=== PATIENT | female | born 1955 | race Caucasian/White ===

== ENCOUNTER 2017-04-10 16:52 | Inpatient (IN) | payer OTHER ==
[2017-04-10 16:59] VITALS: BMI 52.2
[2017-04-10] MEDS ORDERED: SODIUM CHLORIDE 1,000 ML IV STA (17:48)
[2017-04-10] MEDS ORDERED: dilTIAZem HCL 50 MG/10 ML - 10 ML VIAL IVPUSH ONE (17:48)
[2017-04-10] MEDS ORDERED: dilTIAZem HCL 125 MG/25 ML - 25 ML VIAL ONE (18:04)
--- NOTE | 2017-04-10 18:09 | PDOC ---
Attending Attestation - Resident Resident Name: CristisusannaOrbel - ED Attending Attestation I have performed the following: I have examined & evaluated the patient, The case was reviewed & discussed with the resident, I agree w/resident's findings & plan, Exceptions are as noted - HPI HPI: 04/10/17 19:12 61-year-old female with past medical history obesity presents from Dr. Ledbetter's office for atrial fibrillation and rapid ventricular response. The patient reports 3 days of dysuria and blood-tinged urine. Went to her primary care physician's office and noted that she was tachycardic and irregular. Patient was noted to have atrophic relation in rapid ventricular response. She denies chest pain or shortness of breath. Denies recent illnesses other than her dysuria. Patient was sent to the ED for further evaluation. - Physicial Exam PE: 04/10/17 19:15 GENERAL: Awake, alert, and fully oriented, in no acute distress. HEAD: No signs of trauma EYES: PERRLA, EOMI, sclera anicteric, conjunctiva clear ENT: Auricles normal inspection, hearing grossly normal, nares patent, oropharynx clear without exudates. NECK: Normal ROM, supple, no lymphadenopathy, JVD, or masses LUNGS: Breath sounds equal, clear to auscultation bilaterally. No wheezes, and no crackles HEART: Irregularly irregular and tachycardic, normal S1 and S2, no murmurs, rubs or gallops ABDOMEN: Soft, nontender, normoactive bowel sounds. No guarding, no rebound. No masses EXTREMITIES: Normal range of motion, no edema. No clubbing or cyanosis. No cords, erythema, or tenderness NEUROLOGICAL: Cranial nerves II through XII grossly intact. Normal speech, normal gait SKIN: Warm, Dry, normal turgor, no rashes or lesions noted. - Medical Decision Making 04/10/17 19:16 Vital Signs Temp Pulse Resp BP Pulse Ox 97.6 F 86 18 96/65 99 04/10/17 16:55 04/10/17 18:20 04/10/17 18:20 04/10/17 18:20 04/10/17 18:20 We'll need to rule out urinary tract infection given the symptoms. However, given the atrial fibrillation, we'll consult at the request of Dr. Ledbetter with Dr. Washington for management. Patient was given IV diltiazem with improvement in heart rate. [id number]. We'll admit the patient to hospital for further evaluation. 04/10/17 19:21 04/10/17 19:22 CBC, BMP 04/10/17 18:00 04/10/17 18:00 CMP Sodium 140 mmol/L (136-145) 04/10/17 18:00 Potassium 4.7 mmol/L (3.5-5.1) 04/10/17 18:00 Chloride 104 mmol/L (98-107) 04/10/17 18:00 Carbon Dioxide 27 mmol/L (21-32) 04/10/17 18:00 Anion Gap 9 (8-16) 04/10/17 18:00 BUN 20 mg/dL (7-18) H 04/10/17 18:00 Creatinine 1.4 mg/dL (0.55-1.02) H 04/10/17 18:00 Creat Clearance w eGFR 38.23 (>60) 04/10/17 18:00 Random Glucose 120 mg/dL (74-106) H 04/10/17 18:00 Calcium 10.3 mg/dL (8.5-10.1) H 04/10/17 18:00 Magnesium 2.4 mg/dL (1.8-2.4) 04/10/17 18:00 Total Bilirubin 0.6 mg/dL (0.2-1.0) 04/10/17 18:00 AST 14 U/L (15-37) L 04/10/17 18:00 ALT 33 U/L (12-78) 04/10/17 18:00 Alkaline Phosphatase 101 U/L (45-117) 04/10/17 18:00 Creatine Kinase 48 IU/L (26-192) 04/10/17 18:00 Troponin I < 0.02 ng/ml (0.00-0.05) 04/10/17 18:00 Total Protein 7.2 g/dl (6.4-8.2) 04/10/17 18:00 Albumin 4.1 g/dl (3.4-5.0) 04/10/17 18:[address] Panchal. Requests we start NOAC. Will start xarelto Will need echo as inpatient. Will admit. 04/10/17 20:47 Pt noted with UTI. Ceftriaxone ordered. Pt's HR improved. Case discussed with Dr. Ledbetter. Wants admission to [facility]. Case discussed with [facility] hospitalist. Will admit to telemetry admission. Case discussed in detail with admitting physician including history, physical exam and ancillary studies. Admitting physician has assumed care for the patient, will follow all pending diagnostics and will complete the evaluation and treatment. Heart Score/ECG Review #1 04/10/17 19:15 afib RVR 132 q wave V1, QTC 367 msec, no std/mansi
--- NOTE | 2017-04-10 18:14 | PDOC ---
History of Present Illness - General Chief Complaint: Palpitations Stated Complaint: irreg heart beat Time Seen by Provider: 04/10/17 17:13 History Source: Patient Exam Limitations: No Limitations - History of Present Illness Initial Comments: 04/10/17 18:04 Patient is an 61F with a history of morbid obesity with no other health problems here today complaining of an abnormal ECG at her PCP office. She endorses vague complaints of shortness of breath for the past several days, but is not sure if she's really had shortness of breath. She denies chest pain, weakness, lightheadedness, nausea and vomiting. She denies any recent decrease in her activity level. She was going to her PCP to have symptoms evaluated for a possible UTI. She's had two episodes of bloody urine along with suprapubic pain. She denies nausea, vomiting, fevers and chills. She also denies CVA tenderness. She endorses increased urinary frequency. PCP: Dr. Ledbetter Past History - Past Medical History Allergies/Adverse Reactions: Allergies Allergy/AdvReac Type Severity Reaction Status Date / Time No Known Allergies Allergy Verified 04/10/17 16:54 Home Medications: Ambulatory Orders NK [No Known Home Medication] 04/10/17 Other medical history: none - Psycho/Social/Smoking Cessation Hx Anxiety: No Suicidal Ideation: No Smoking History: Never smoked Have you smoked in the past 12 months: No Information on smoking cessation initiated: No Hx Alcohol Use: No Drug/Substance Use Hx: No Substance Use Type: None Review of Systems - Review of Systems Comments:: 04/10/17 18:15 GENERAL/CONSTITUTIONAL: No fever or chills. No weakness. HEAD, EYES, EARS, NOSE AND THROAT: No change in vision. No ear pain or discharge. No sore throat. CARDIOVASCULAR: No chest pain, shortness of breath RESPIRATORY: No cough, wheezing, or hemoptysis. GASTROINTESTINAL: No nausea, vomiting, diarrhea or constipation. GENITOURINARY: Positive for increased urinary frequency, bloody urine, and suprapubic pain MUSCULOSKELETAL: No joint or muscle swelling or pain. Positive for back pain, unchanged from baseline SKIN: No rash NEUROLOGIC: No headache, loss of consciousness, or change in strength/sensation. ALLERGIC/IMMUNOLOGIC: No hives or skin allergy. *Physical Exam - Vital Signs Last Vital Signs Temp Pulse Resp BP Pulse Ox 97.6 F 99 H 19 107/89 100 04/10/17 16:55 04/10/17 19:35 04/10/17 19:35 04/10/17 19:35 04/10/17 19:35 - Physical Exam Comments: 04/10/17 18:16 GENERAL: Awake, alert, and fully oriented, in no acute distress HEAD: No signs of trauma, normocephalic, atraumatic EYES: PERRLA, EOMI, sclera anicteric, conjunctiva clear ENT: Auricles normal inspection, hearing grossly normal, nares patent, oropharynx clear without exudates. Moist mucosa NECK: Normal ROM, supple, no lymphadenopathy, JVD, or masses LUNGS: No distress, speaks full sentences, clear to auscultation bilaterally HEART: Irregularly irregular, tachycardic ranging between 120 and 155, pulses equal bilaterally. ABDOMEN: Soft, nontender, normoactive bowel sounds. No guarding, no rebound. No masses EXTREMITIES: Normal inspection, Normal range of motion, no edema. No clubbing or cyanosis. NEUROLOGICAL: Cranial nerves II through XII grossly intact. Normal speech, normal gait, no focal sensorimotor deficits SKIN: Warm, Dry, normal turgor, no rashes or lesions noted. ED Treatment Course - LABORATORY CBC & Chemistry Diagram: 04/10/17 18:00 04/10/17 18:00 - ADDITIONAL ORDERS Additional order review: Laboratory Results 04/10/17 04/10/17 18:00 18:00 INR 1.01 Sodium 140 Potassium 4.7 Chloride 104 Carbon Dioxide 27 Anion Gap 9 BUN 20 H Creatinine 1.4 H Creat Clearance w eGFR 38.23 Random Glucose 120 H Calcium 10.3 H Magnesium 2.4 Total Bilirubin 0.6 AST 14 L ALT 33 Alkaline Phosphatase 101 Creatine Kinase 48 Troponin I < 0.02 Total Protein 7.2 Albumin 4.1 04/10/17 18:00 RBC 5.05 MCV 88.1 MCHC 33.0 RDW 14.0 MPV 8.9 Neutrophils % 74.7 Lymphocytes % 14.6 Monocytes % 10.0 Eosinophils % 0.4 Basophils % 0.3 - RADIOLOGY Radiology Studies Ordered: Category Date Time Status CHEST X-RAY PORTABLE* [RAD] Stat Radiology 04/10/17 17:48 Taken - Medications Given in the ED: ED Medications Discontinued Medications Generic Name Dose Route Start Last Admin Trade Name Samantha PRN Reason Stop Dose Admin Diltiazem HCl 20 mg 04/10/17 17:48 04/10/17 18:13 Cardizem Injection - IVPUSH 04/10/17 17:49 20 mg ONCE ONE Administration Diltiazem HCl 30 mg 04/10/17 19:14 04/10/17 19:20 Cardizem - PO 04/10/17 19:15 30 mg ONCE ONE Administration Sodium Chloride 1,000 mls @ 1,000 mls/hr 04/10/17 17:48 04/10/17 18:02 Normal Saline - IV 04/10/17 18:47 1,000 mls/hr ASDIR STA Administration Rivaroxaban 15 mg 04/10/17 19:23 04/10/17 19:48 Xarelto - PO 04/10/17 19:24 15 mg ONCE ONE Administration Medical Decision Making - Medical Decision Making 04/10/17 18:19 Patient is a 61F with history of morbid obesity here today presenting with afib with RVR, tachy ranging between 120 and 155 with SBP of 150. Given 20mg of diltiazem and heart rate dropped to 70-80, SBP dropped to 95. Given 1L of NS. Ordered CBC, CMP, Mg, CXR, and Cardiac enzymes to evaluate the cardiovascular system. UA ordered to evaluate bloody urine. 04/10/17 20:02 Patient signed out to Dr Barajas *DC/Admit/Observation/Transfer Diagnosis at time of Disposition: Atrial fibrillation with rapid ventricular response - Attestations Physician Attestion: 04/10/17 20:04 I, Dr. Robel Renae, attest that this document has been prepared under my direction and personally reviewed by me in its entirety. I further attest, that it accurately reflects all work, treatment, procedures and medical decision -making performed by me.
[2017-04-10 18:17] LABS: BASOPHIL 0.3 % (0-2.0); EOSINOPHIL 0.4 % (0-4.5); MCH 29.1 pg (25.7-33.7); MEAN CELL VOLUME 88.1 fl (80-96); MEAN PLT VOLUME 8.9 fl (7.5-11.1); NEUTROPHILS 74.7 % (42.8-82.8); PLATELET COUNT 295 K/MM3 (134-434); WHITE BLOOD COUNT 11.4 K/mm3 (4.0-10.0)
[2017-04-10 18:38] LABS: ALBUMIN 4.1 g/dl (3.4-5.0); ANION GAP 9 (8-16); CALCIUM 10.3 mg/dL (8.5-10.1); CO2 27 mmol/L (21-32); CREATININE 1.4 mg/dL (0.55-1.02); GLUCOSE,RANDOM 120 mg/dL (74-106); MAGNESIUM 2.4 mg/dL (1.8-2.4); SGOT/AST 14 U/L (15-37); SGPT/ALT 33 U/L (12-78)
[2017-04-10 18:42] LABS: ALK PHOS 101 U/L (45-117); BILIRUBIN,TOTAL 0.6 mg/dL (0.2-1.0); CPK 48 IU/L (26-192); TOT PROT 7.2 g/dl (6.4-8.2); TROPONIN I < 0.02 ng/ml (0.00-0.05)
[2017-04-10 19:07] LABS: INR 1.01 (0.82-1.09); PROTHROMBIN TIME (PATIENT) 11.1 SEC (9.98-11.88)
[2017-04-10 19:09] LABS: URINE APPEARANCE CLEAR; URINE BILIRUBIN 2+ (NEGATIVE); URINE BLOOD 3+ (NEGATIVE); URINE COLOR DK. ORANGE; URINE GLUCOSE (UA) 1+ (NEGATIVE); URINE KETONE TRACE (NEGATIVE); URINE UROBILINOGEN >=8.0 E.U./dl mg/dL (0.2-1.0)
[2017-04-10] MEDS ORDERED: dilTIAZem HCL 30 MG TABLET (FP) PO ONE (19:14)
[2017-04-10] MEDS ORDERED: dilTIAZem HCL 30 MG TABLET (FP) ONE ×2 (19:18→22:22)
[2017-04-10] MEDS ORDERED: RIVAROXABAN 15 MG TABLET PO ONE (19:23)
[2017-04-10 20:19] LABS: URINE LEUK ESTERASE 1+ (NEGATIVE); URINE NITRITE POSITIVE (NEGATIVE); URINE PROTEIN 3+ (NEGATIVE)
[2017-04-10] MEDS ORDERED: CEFTRIAXONE 1 GM in DEXTROSE 5%-WATER - 50 ML IVPB ONE (20:20)
[2017-04-10] MEDS ORDERED: CEFTRIAXONE 50 ML ONE (20:23)
[2017-04-10 20:29] LABS: URINE MUCUS RARE; URINE RBC 424 /hpf (0-3); URINE WBC 114 /hpf (3-5)
--- NOTE | 2017-04-10 20:48 | PDOC ---
*Physical Exam - Vital Signs Last Vital Signs Temp Pulse Resp BP Pulse Ox 97.6 F 99 H 19 107/89 100 04/10/17 16:55 04/10/17 19:35 04/10/17 19:35 04/10/17 19:35 04/10/17 19:35 ED Treatment Course - LABORATORY CBC & Chemistry Diagram: 04/10/17 18:00 04/10/17 18:00 - ADDITIONAL ORDERS Additional order review: Laboratory Results 04/10/17 04/10/17 04/10/17 18:17 18:00 18:00 INR 1.01 Sodium 140 Potassium 4.7 Chloride 104 Carbon Dioxide 27 Anion Gap 9 BUN 20 H Creatinine 1.4 H Creat Clearance w eGFR 38.23 Random Glucose 120 H Calcium 10.3 H Magnesium 2.4 Total Bilirubin 0.6 AST 14 L ALT 33 Alkaline Phosphatase 101 Creatine Kinase 48 Troponin I < 0.02 Total Protein 7.2 Albumin 4.1 Urine Color Dk. orange Urine Appearance Clear Urine pH 5.0 Urine Protein 3+ H Urine Glucose (UA) 1+ H Urine Ketones Trace H Urine Blood 3+ H Urine Nitrite Positive Urine Bilirubin 2+ H Urine Urobilinogen >=8.0 e.u./dl H Ur Leukocyte Esterase 1+ H Urine RBC 424 Urine WBC 114 Urine Mucus Rare 04/10/17 18:00 RBC 5.05 MCV 88.1 MCHC 33.0 RDW 14.0 MPV 8.9 Neutrophils % 74.7 Lymphocytes % 14.6 Monocytes % 10.0 Eosinophils % 0.4 Basophils % 0.3 - Medications Given in the ED: ED Medications Discontinued Medications Generic Name Dose Route Start Last Admin Trade Name Samantha PRN Reason Stop Dose Admin Diltiazem HCl 20 mg 04/10/17 17:48 04/10/17 18:13 Cardizem Injection - IVPUSH 04/10/17 17:49 20 mg ONCE ONE Administration Diltiazem HCl 30 mg 04/10/17 19:14 04/10/17 19:20 Cardizem - PO 04/10/17 19:15 30 mg ONCE ONE Administration Sodium Chloride 1,000 mls @ 1,000 mls/hr 04/10/17 17:48 04/10/17 18:02 Normal Saline - IV 04/10/17 18:47 1,000 mls/hr ASDIR STA Administration Rivaroxaban 15 mg 04/10/17 19:23 04/10/17 19:48 Xarelto - PO 04/10/17 19:24 15 mg ONCE ONE Administration *DC/Admit/Observation/Transfer Diagnosis at time of Disposition: Atrial fibrillation with rapid ventricular response Urinary tract infection Qualifiers: Urinary tract infection type: site unspecified Hematuria presence: without hematuria Qualified Code(s): N39.0 - Urinary tract infection, site not specified - Discharge Dispostion Condition at time of disposition: Stable Admit: Yes - Referrals Referrals: Roberto Ledbetter MD [Primary Care Provider] - - Patient Instructions - Post Discharge Activity
--- NOTE | 2017-04-10 21:19 | HP ---
CHIEF COMPLAINT: Sent by PCP for abnormal ECG PCP: Khloe HISTORY OF PRESENT ILLNESS: This is a 61 year old female with no significant past medical history who presents from her PCP office in new onset rapid atrial fibrillation. Pt presented to her PCP for hematuria and frequency since friday. She took Azo which abated the symptoms somewhat but decided she should see her PCP. Upon presentation, they noted tachycardia and an ECG revealed afib. Pt reports that she has been feeling tired and maybe a little SOB for the past few days. She denies chest pain or palpitations. She was treated 6 weeks ago for a cold, allergies and UTI by her PCP and at that time her HR was normal. ER course was notable for: (1) ECG with afib with RVR 120s-150s (2) trop neg (3) u/a c/w UTI Recent Travel: [place], [place], [place] PAST MEDICAL HISTORY: morbid obesity PAST SURGICAL HISTORY: tonsillectomy Social History: Smoking: pt denies Alcohol: pt denies Drugs: pt denies Family History: mother age 79 colon [place] father age 57 [place] no siblings no children Allergies No Known Allergies Allergy (Verified 04/10/17 16:54) HOME MEDICATIONS: 3 Medication Instructions Recorded NK [No Known Home Medication] 04/10/17 REVIEW OF SYSTEMS CONSTITUTIONAL: Present: malaise Absent: fever, chills, diaphoresis, generalized weakness, loss of appetite, weight change HEENT: Absent: rhinorrhea, nasal congestion, throat pain, throat swelling, difficulty swallowing, mouth swelling, ear pain, eye pain, visual changes CARDIOVASCULAR: Absent: chest pain, syncope, palpitations, irregular heart rate, lightheadedness , peripheral edema RESPIRATORY: Absent: cough, shortness of breath, dyspnea with exertion, orthopnea, wheezing, stridor, hemoptysis GASTROINTESTINAL: Absent: abdominal pain, abdominal distension, nausea, vomiting, diarrhea, constipation, melena, hematochezia GENITOURINARY: Present: frequency, hematuria, suprapubic pain Absent: dysuria, urgency, hesitancy, flank pain, genital pain MUSCULOSKELETAL: Absent: myalgia, arthralgia, joint swelling, back pain, neck pain SKIN: Absent: rash, itching, pallor HEMATOLOGIC/IMMUNOLOGIC: Absent: easy bleeding, easy bruising, lymphadenopathy, frequent infections ENDOCRINE: Absent: unexplained weight gain, unexplained weight loss, heat intolerance, cold intolerance NEUROLOGIC: Absent: headache, focal weakness or paresthesias, dizziness, unsteady gait, seizure, mental status changes, bladder or bowel incontinence PSYCHIATRIC: Absent: anxiety, depression, suicidal or homicidal ideation, hallucinations. PHYSICAL EXAMINATION Vital Signs - 24 hr 3 04/10/17 04/10/17 04/10/17 04/10/17 16:55 18:15 18:20 19:35 Temperature 97.6 F Pulse Rate 92 H Pulse Rate [ 130 H 86 99 Apical] Respiratory 18 20 18 19 Rate Blood Pressure 150/85 Blood Pressure 137/108 96/65 107/89 [Right Arm] O2 Sat by Pulse 100 99 100 Oximetry (%) GENERAL: Awake, alert, and fully oriented, in no acute distress. HEAD: Normal with no signs of trauma. EYES: Pupils equal, round and reactive to light, extraocular movements intact, sclera anicteric, conjunctiva clear. No lid lag. EARS, NOSE, THROAT: Ears normal, nares patent, oropharynx clear without exudates. Moist mucous membranes. NECK: Normal range of motion, supple without lymphadenopathy, JVD, or masses. LUNGS: Breath sounds equal, clear to auscultation bilaterally. No wheezes, and no crackles. No accessory muscle use. HEART: irregular rate and rhythm, normal S1 and S2 without murmur, rub or gallop. ABDOMEN: Soft, nontender, not distended, normoactive bowel sounds, no guarding, no rebound, no masses. No hepatomegaly or splenomegaly. MUSCULOSKELETAL: Normal range of motion at all joints. No bony deformities or tenderness. No CVA tenderness. UPPER EXTREMITIES: 2+ pulses, warm, well-perfused. No cyanosis. No clubbing. No peripheral edema. LOWER EXTREMITIES: 2+ pulses, warm, well-perfused. No calf tenderness. No peripheral edema. NEUROLOGICAL: Cranial nerves II-XII intact. Normal speech. Normal gait. PSYCHIATRIC: Cooperative. Good eye contact. Appropriate mood and affect. SKIN: Warm, dry, normal turgor, no rashes or lesions noted, normal capillary refill. Laboratory Results - last 24 hr 3 04/10/17 04/10/17 04/10/17 18:00 18:00 18:00 WBC 11.4 H RBC 5.05 Hgb 14.7 Hct 44.5 MCV 88.1 MCH 29.1 MCHC 33.0 RDW 14.0 Plt Count 295 MPV 8.9 Neutrophils % 74.7 Lymphocytes % 14.6 Monocytes % 10.0 Eosinophils % 0.4 Basophils % 0.3 INR 1.01 Sodium 140 Potassium 4.7 Chloride 104 Carbon Dioxide 27 Anion Gap 9 BUN 20 H Creatinine 1.4 H Creat Clearance w eGFR 38.23 Random Glucose 120 H Calcium 10.3 H Magnesium 2.4 Total Bilirubin 0.6 AST 14 L ALT 33 Alkaline Phosphatase 101 Creatine Kinase 48 Troponin I < 0.02 Total Protein 7.2 Albumin 4.1 Urine Color Urine Appearance Urine pH Urine Protein Urine Glucose (UA) Urine Ketones Urine Blood Urine Nitrite Urine Bilirubin Urine Urobilinogen Ur Leukocyte Esterase Urine RBC Urine WBC Urine Mucus 3 Urine Color Dk. orange 04/10/17 18:17 Urine Appearance Clear 04/10/17 18:17 Urine pH 5.0 (5.0-8.0) 04/10/17 18:17 Urine Protein 3+ (NEGATIVE) H 04/10/17 18:17 Urine Glucose (UA) 1+ (NEGATIVE) H 04/10/17 18:17 Urine Ketones Trace (NEGATIVE) H 04/10/17 18:17 Urine Blood 3+ (NEGATIVE) H 04/10/17 18:17 Urine Nitrite Positive (NEGATIVE) 04/10/17 18:17 Urine Bilirubin 2+ (NEGATIVE) H 04/10/17 18:17 Ur Leukocyte Esterase 1+ (NEGATIVE) H 04/10/17 18:17 Urine RBC 424 /hpf (0-3) 04/10/17 18:17 Urine WBC 114 /hpf (3-5) 04/10/17 18:17 Urine Mucus Rare 04/10/17 18:17 CXR No obvious infiltrate or effusion, final read pending ECG Afib with RVR, rate 132, QTC [address]/T wave changes ASSESSMENT/PLAN: 61yF with no significant past medical history presented to the ED with new onset rapid afib. She is being admitted for further evaluation and treatment. Afib with RVR - given cardizem 20mg IVP and 30mg po in ED with improvement in rate, now 70s -100s - cont cardizem 30mg po Q6H, titrate up to rate control - cardiology consult, as per ED, Dr. Ledbetter requested Dr. Washington group - echo in am - trend trop x 3, 1st neg - ECG now and in am RUBEN - creatinine 1.4, unclear if this is new, PCP unsure. Will treat as if new - could be secondary to hypoperfusion due to afib, or UTI - received 1L NS in ED - repeat BMP in AM - if not resolving, renal consult DVT PPX - started on xarelto 15mg qd for afib, adjusted for CrCl 36 (with IBW 55kg) - will change to pradaxa 150mg BID given drug interaction between cardizem and xarelto FEN - hold further IVF as appears euvolemic and tolerating po - BMP in am - regular diet as tolerated Dispo: Pt currently requires inpatient management of her emergent condition. Visit type - Emergency Visit Emergency Visit: Yes ED Registration Date: 04/10/17 Care time: The patient presented to the Emergency Department on the above date and was hospitalized for further evaluation of their emergent condition. - New Patient This patient is new to me today: Yes Date on this admission: 04/10/17 - Critical Care Critical Care patient: No
[2017-04-10] MEDS: dilTIAZem HCL 30 MG TABLET (FP) PO SCH (22:24)
[2017-04-11 00:52] LABS: CPK 37 IU/L (26-192); TROPONIN I < 0.02 ng/ml (0.00-0.05)
[2017-04-11 07:00] LABS: BASOPHIL 0.5 % (0-2.0); EOSINOPHIL 0.7 % (0-4.5); MCH 29.7 pg (25.7-33.7); MCHC 33.9 g/dl (32.0-36.0); MEAN CELL VOLUME 87.7 fl (80-96); MEAN PLT VOLUME 8.3 fl (7.5-11.1); NEUTROPHILS 63.3 % (42.8-82.8); PLATELET COUNT 245 K/MM3 (134-434); RDW 13.9 % (11.6-15.6)
[2017-04-11 07:29] LABS: ANION GAP 6 (8-16); CALCIUM 9.6 mg/dL (8.5-10.1); CO2 27 mmol/L (21-32); CREATININE 0.7 mg/dL (0.55-1.02); GLUCOSE,RANDOM 109 mg/dL (74-106); PHOSPHOROUS 2.9 mg/dL (2.5-4.9)
[2017-04-11 07:33] LABS: CPK 53 IU/L (26-192); TROPONIN I < 0.02 ng/ml (0.00-0.05)
[2017-04-11 07:38] LABS: MAGNESIUM 2.5 mg/dL (1.8-2.4)
[2017-04-11] MEDS ORDERED: dilTIAZem HCL 30 MG TABLET (FP) ONE ×2 (07:52→10:17)
[2017-04-11] MEDS: dilTIAZem HCL 30 MG TABLET (FP) PO SCH ×4 (07:55→18:24)
--- NOTE | 2017-04-11 08:11 | CON.CARD ---
Consult Consult Specialty:: Cardiology Referred by:: Roberto Ledbetter MD Reason for Consultation:: Newly diagnosed atrial fibrillation - History of Present Illness Chief Complaint: Newly diagnosed afib History of Present Illness: PCP: Khloe HISTORY OF PRESENT ILLNESS: This is a 61 year old female with no significant past medical history who presents from her PCP office with newly diagnosed rapid atrial fibrillation. Pt presented to her PCP for hematuria, dysuria and frequency since friday. She took Azo which abated the symptoms somewhat but decided she should see her PCP. Upon presentation, they noted tachycardia and an ECG revealed afib. Pt reports that she has been feeling tired, mildly dyspneic for the past few days. She denies chest pain or palpitations, true syncope, orthopnea, PND, LE edema or change in exercise capacity. She was treated 6 weeks ago for a cold, allergies and UTI by her PCP and at that time her HR was normal. ER course was notable for: (1) ECG with afib with RVR 120s-150s (2) trop neg (3) u/a c/w UTI Recent Travel: [place], [place], [place] PAST MEDICAL HISTORY: morbid obesity PAST SURGICAL HISTORY: tonsillectomy Social History: Smoking: pt denies Alcohol: pt denies Drugs: pt denies Family History: mother age 79 colon CA father age 57 [place] no siblings no children Allergies No Known Allergies Allergy (Verified 04/10/17 16:54) - History Source History Provided By: Patient Limitations to Obtaining History: No Limitations - Alcohol/Substance Use Hx Alcohol Use: No - Smoking History Smoking history: Never smoked Have you smoked in the past 12 months: No Home Medications - Allergies Allergies/Adverse Reactions: Allergies Allergy/AdvReac Type Severity Reaction Status Date / Time No Known Allergies Allergy Verified 04/10/17 16:54 - Home Medications Home Medications: Ambulatory Orders NK [No Known Home Medication] 04/10/17 Review of Systems - Review of Systems Constitutional: reports: Malaise Cardiovascular: reports: Shortness of Breath - Risk Factors Known Risk Factors: Yes: Gender Vital Signs: Vital Signs Temperature 98.6 F 04/11/17 07:57 Pulse Rate 127 H 04/11/17 07:57 Respiratory Rate 20 04/11/17 07:57 Blood Pressure 131/97 04/11/17 07:57 O2 Sat by Pulse Oximetry (%) 99 04/11/17 07:57 Constitutional: Yes: No Distress, Calm Neck: Yes: Supple Respiratory: Yes: Regular, CTA Bilaterally Gastrointestinal: Yes: Normal Bowel Sounds, Soft, Abdomen, Obese Cardiovascular: Yes: Tachycardia, Pulse Irregular JVD: No Carotid Bruit: No Heart Sounds: Yes: S1, S2 Edema: No - Other Data Labs, Other Data: CBC, BMP 04/11/17 06:40 INR, PTT INR 1.01 (0.82-1.09) 04/10/17 18:00 Troponin, BNP 04/11/17 04/11/17 00:01 06:40 Troponin I < 0.02 < 0.02 Troponin, BNP 04/11/17 04/11/17 00:01 06:40 Troponin I < 0.02 < 0.02 Afib 120's-130's Imaging - Results Chest X-ray: Report Reviewed (Right base granuloma, NAD) Problem List - Problems (1) Atrial fibrillation with rapid ventricular response Code(s): I48.91 - UNSPECIFIED ATRIAL FIBRILLATION (2) UTI (urinary tract infection) Code(s): N39.0 - URINARY TRACT INFECTION, SITE NOT SPECIFIED Qualifiers: Urinary tract infection type: site unspecified Hematuria presence: without hematuria Qualified Code(s): N39.0 - Urinary tract infection, site not specified; R31.9 - Hematuria, unspecified (3) Acute kidney injury Code(s): N17.9 - ACUTE KIDNEY FAILURE, UNSPECIFIED Assessment/Plan 61yF with no significant past medical history presented to the ED with new onset rapid afib. She is being admitted for further evaluation and treatment. 1. Newly diagnosed Afib with RVR - given cardizem 20mg IVP and 30mg po in ED with improvement in rate, now 70s -100s - cont cardizem 30mg po Q6H, titrate up to rate control - echo in am, check TSH - Ruled out for [place] - Despite low [id number], will start Eliquis 5 bid in anticipation of cardioversion attempt after 6-8 weeks of NOAC if afib persists despite rate- control. She declines RITESH-guidance for cardioversion. 2. RUBEN improving - creatinine 1.4->0.7 - could be secondary to hypoperfusion due to afib (hemodynamic alterations) - received 1L NS in ED 3. UTI -Complete abx course per [facility] 4. DVT PPX - change Pradaxa to Eliquis 5 bid
[2017-04-11] MEDS ORDERED: RIVAROXABAN 15 MG TABLET PO SCH (10:00)
[2017-04-11] MEDS ORDERED: DABIGATRAN ETEXILATE MESYLATE 150 MG CAPSULE PO SCH (10:00)
--- NOTE | 2017-04-11 10:15 | EKG ---
Test Reason : Blood Pressure : / mmHG Vent. Rate : 096 BPM Atrial Rate : 202 BPM P-R Int : 000 ms QRS Dur : 078 ms QT Int : 334 ms P-R-T Axes : 000 002 001 degrees QTc Int : 421 ms ATRIAL FIBRILLATION POSSIBLE INFERIOR INFARCT , AGE UNDETERMINED ABNORMAL ECG WHEN COMPARED WITH ECG OF 10-APR-2017 21:19, NO SIGNIFICANT CHANGE WAS FOUND Confirmed by HILLARY LOWERY MD ([id number]) on 04/11/2017 10:15:33 AM Referred By: JOSH BEDOYA Confirmed By:HILLARY LOWERY MD
[2017-04-11] MEDS: APIXABAN 5 MG TABLET PO SCH ×2 (10:20→21:08)
--- NOTE | 2017-04-11 10:22 | EKG ---
Test Reason : Blood Pressure : / mmHG Vent. Rate : 121 BPM Atrial Rate : 163 BPM P-R Int : 000 ms QRS Dur : 076 ms QT Int : 276 ms P-R-T Axes : 000 -13 007 degrees QTc Int : 391 ms ATRIAL FIBRILLATION WITH RAPID VENTRICULAR RESPONSE MODERATE VOLTAGE CRITERIA FOR LVH, MAY BE NORMAL VARIANT ABNORMAL ECG NO PREVIOUS ECGS AVAILABLE Confirmed by HILLARY LOWERY MD ([id number]) on 04/11/2017 10:22:18 AM Referred By: Confirmed By:HILLARY LOWERY MD
[2017-04-11] MEDS ORDERED: SODIUM CHLORIDE 500 ML IV STA (18:40)
--- NOTE | 2017-04-11 18:58 | PN ---
Physical Exam: SUBJECTIVE: Patient seen and examined. She denies further dysuria, frequency, no fevers. at bedside. OBJECTIVE: Vital Signs Period Temp Pulse Resp BP Sys/Smith Pulse Ox Last 24 Hr 98.6 F-98.7 F 103-127 20-21 98-131/52-97 98-99 PE General: flushed Neuro: alert, awake, cn 2-12intact Pulm: CTAB CV: irregular rate and rhythm no mrg Abd: obese abd s nt nd +bs Ext: no le edema Laboratory Results - last 24 hr 04/11/17 04/11/17 04/11/17 00:01 06:40 06:40 WBC 8.0 RBC 4.78 Hgb 14.2 Hct 42.0 MCV 87.7 MCH 29.7 MCHC 33.9 RDW 13.9 Plt Count 245 MPV 8.3 Neutrophils % 63.3 Lymphocytes % 22.9 D Monocytes % 12.6 H Eosinophils % 0.7 Basophils % 0.5 Sodium 141 Potassium 4.2 Chloride 108 H Carbon Dioxide 27 Anion Gap 6 L BUN 15 D Creatinine 0.7 D Random Glucose 109 H Calcium 9.6 Phosphorus 2.9 Magnesium 2.5 H Creatine Kinase 37 53 Troponin I < 0.02 < 0.02 Active Medications Generic Name Dose Route Start Last Admin Trade Name Freq PRN Reason Stop Dose Admin Apixaban 5 mg 04/11/17 10:00 04/11/17 10:20 Eliquis - PO 5 mg BID YAJAIRA Administration Diltiazem HCl 30 mg 04/10/17 22:00 04/11/17 18:24 Cardizem - PO Not Given QID YAJAIRA Ceftriaxone Sodium 50 mls @ 100 mls/hr 04/11/17 20:00 Rocephin 1gm Ivpb (Pre-Docked) IVPB DAILY YAJAIRA Sodium Chloride 500 mls @ 500 mls/hr 04/11/17 18:40 Normal Saline - IV 04/11/17 19:39 ASDIR STA Assessment: 61 year female with no significant past medical history admitted with new onset rapid afib. Plan: 1. New onset Afib with RVR - HR 105's at rest - - Continue Cardizem 30mg po q6 - Cardizem IV 20mg IVP PRN - Started Eliquis 5mg BID - ECHO: LVSF normal, mild MR, mild TR - Serial trops negative - D/w Cardiology 2. RUBEN - Resolved - Possible poor perfusion 2/2 A fib vs infectious state 3. UTI - Urine cx pending - Continue ceftriaxone (day 2) 4. DVT PPX - on Eliquis 5. Hypotension - Give 500ml bolus Visit type - Emergency Visit Emergency Visit: Yes ED Registration Date: 04/10/17 Care time: The patient presented to the Emergency Department on the above date and was hospitalized for further evaluation of their emergent condition. - New Patient This patient is new to me today: Yes Date on this admission: 04/11/17 - Critical Care Critical Care patient: No
[2017-04-11] MEDS: CEFTRIAXONE 50 ML IVPB SCH (21:08)
[2017-04-11] MEDS ORDERED: dilTIAZem HCL 30 MG TABLET (FP) PO SCH (22:00)
[2017-04-12] MEDS ORDERED: dilTIAZem HCL 30 MG TABLET (FP) PO SCH (01:06)
[2017-04-12 08:40] LABS: ANION GAP 8 (8-16); CALCIUM 9.4 mg/dL (8.5-10.1); CO2 27 mmol/L (21-32); CREATININE 0.5 mg/dL (0.55-1.02); GLUCOSE,RANDOM 99 mg/dL (74-106)
[2017-04-12 08:49] LABS: THYROID STIMULATING HORMONE 1.85 uIU/ml (0.358-3.74)
[2017-04-12] MEDS: APIXABAN 5 MG TABLET PO SCH ×2 (08:51→09:41)
[2017-04-12] MEDS: CEFTRIAXONE 50 ML IVPB SCH ×2 (08:51→09:42)
--- NOTE | 2017-04-12 10:27 | DS ---
Physical Exam: SUBJECTIVE: Patient seen and examined. She is feeling great, ambulating the halls without distress. Events: tele: sinus tach, HR 104 max with ambulation OBJECTIVE: Vital Signs Period Temp Pulse Resp BP Sys/Smith Pulse Ox Last 24 Hr 97.8 F-98.7 F 76-109 18-20 81-139/50-74 94-99 PE Neuro: alert, awake, cn 2-12intact Pulm: CTAB CV: s1 s2 tachycardia Abd: obese abd s nt nd +bs Ext: no le edema LABS Laboratory Results - last 24 hr 04/12/17 06:05 Sodium 141 Potassium 4.1 Chloride 106 Carbon Dioxide 27 Anion Gap 8 BUN 13 Creatinine 0.5 L D Random Glucose 99 Calcium 9.4 TSH 1.85 HOSPITAL COURSE: Date of Admission:04/10/17 Date of Discharge: 04/12/17 Minutes to complete discharge: 36 Discharge Summary Reason For Visit: UTI/ATRIAL FIBRILLATION W/ VENTRICULAR RESPONSE Current Active Problems Acute kidney injury (Acute) Atrial fibrillation with rapid ventricular response (Acute) UTI (urinary tract infection) (Acute) Hospital Course: Initial Hospital Course: Briefly, this 61 year old female with no significant past medical history presented from her PCP office in new onset rapid atrial fibrillation. Pt presented to her PCP for hematuria and frequency since Friday. She took Azo which abated the symptoms somewhat but decided she should see her PCP. Upon presentation, they noted tachycardia and an ECG revealed afib. Pt reported fatigue, and maybe a little SOB for the past few days. She denied chest pain or palpitations. She was treated 6 weeks ago for a cold, allergies and UTI by her PCP and at that time her HR was normal. Subsequent Hospital Course/Progress Note/Discharge Summary by a/p: Assessment: 61 year female with no significant past medical history admitted with new onset rapid afib. Plan: 1. New onset Afib with RVR - Converted to Sinus - Start cardizem CD 120mg - Eliquis 5mg BID, coupon 1 month card given - Cardiology follow up in 1 week - ECHO: LVSF normal, mild MR, mild TR - Serial trops negative 2. RUBEN - Resolved with fluids 3. UTI - Urine cx negative - Ceftriaxone x3 days - Home with ceftin 500mg BID x 4days Dispo: - Home with pcp and cardiology follow up (referral enclosed) - Meds as above Condition: Stable - Instructions Diet, Activity, Other Instructions: Please return to the ED for any new, persistent, or worsening symptoms. Follow up with you PCP in 1 week Take new medications as directed and prescribed Make appt with Cardiology (referral enclosed) in 1-2 weeks Complete antibiotics as directed Increase oral water intake Referrals: Roberto Ledbetter MD [Primary Care Provider] - Sammy Washington MD [Staff Physician] - Disposition: HOME - Home Medications Comprehensive Discharge Medication List: Ambulatory Orders Apixaban [Eliquis -] 5 mg PO BID #60 tablet 04/12/17 Cefuroxime Axetil [Ceftin -] 500 mg PO BID #8 tablet 04/12/17 Diltiazem Cd [Cardizem Cd -] 120 mg PO DAILY #30 cap.cd.[id number] 04/12/17 This patient is new to me today: No Emergency Visit: Yes ED Registration Date: 04/10/17 Care time: The patient presented to the Emergency Department on the above date and was hospitalized for further evaluation of their emergent condition. Critical Care patient: No - Discharge Referral Referred to [facility] Med P.C.: No
[2017-04-12 11:59] VITALS: BP 121/57; PULSE 87; TEMP 98.7
--- NOTE | 2017-04-12 18:42 | EKG ---
Test Reason : Blood Pressure : / mmHG Vent. Rate : 132 BPM Atrial Rate : 192 BPM P-R Int : 000 ms QRS Dur : 072 ms QT Int : 248 ms P-R-T Axes : 000 004 035 degrees QTc Int : 367 ms POOR DATA QUALITY, INTERPRETATION MAY BE ADVERSELY AFFECTED ATRIAL FIBRILLATION WITH RAPID VENTRICULAR RESPONSE CANNOT RULE OUT ANTERIOR INFARCT , AGE UNDETERMINED ABNORMAL ECG NO PREVIOUS ECGS AVAILABLE Confirmed by HILLARY LOWERY MD ([id number]) on 04/12/2017 6:42:21 PM Referred By: Confirmed By:HILLARY LOWERY MD
== END 2017-04-12 11:54 | disposition home or self-care (01) | DRG 309 ==
LOC: JER 16:52 → JERBED 20:48 → J4W 04-11 13:30
PROVIDERS: ADMIT Internal Medicine; ATTEND Nurse Practitioner Acute Care
DX: I48.91 Unspecified atrial fibrillation (principal); N39.0 Urinary tract infection, site not specified; Z68.43 Body mass index [BMI] 50.0-59.9, adult; N17.8 Other acute kidney failure; R00.2 Palpitations; R31.9 Hematuria, unspecified; E66.01 Morbid (severe) obesity due to excess calories; Z71.3 Dietary counseling and surveillance
CPT/HCPCS: 36415; 71010-TC; 80048; 80053; 81003; 81015; 83735; 84100; 84443; 84484; 85025; 85610; 87086; 93005; 93010; 93306-TC; 99285-25